=== PATIENT | male | born 1975 | race Caucasian/White ===

== ENCOUNTER 2020-05-07 11:52 | Outpatient (REF) | payer OTHER, SELFPAY | END 2020-05-07 11:53 | disposition home or self-care (01) | LOC: HO.LAB 11:52 | PROVIDERS: Visit Provider Internal Medicine | DX: Z20.822 Contact with and (suspected) exposure to COVID-19 (principal) | CPT/HCPCS: 36415; C9803; U0003; U0005 ==

== ENCOUNTER 2024-02-09 15:46 | Emergency (ER) | payer OTHER, SELFPAY ==
--- NOTE | ~2024-02-09 | XR_ITS ---
EXAMINATION: XR HAND/WRIST, LEFT CLINICAL INFORMATION: left wrist pain COMPARISON: None available. TECHNIQUE: Four views of the left hand and wrist. FINDINGS: The bones and soft tissues are normal. No fracture. Alignment is anatomic. Joint spaces are maintained. No erosions or soft tissue calcifications. XR/XR hand wrist LT IMPRESSION: Normal radiographs of the hand and wrist. Electronically signed by: Alyson Jefferson MD 02/09/2024 06:04 PM [facility] PALMA
[2024-02-09 15:57] VITALS: BP 129/74; PULSE 69; RESP 18; TEMP 36.6; O2SAT 97; BMI 36.6
--- NOTE | 2024-02-09 15:57 | ED_ITS ---
HPI - General Adult General Chief complaint: Extremity Problem Stated complaint: Pain L hand/arm Time Seen by Provider: 02/09/24 17:50 Source: patient Mode of arrival: ambulatory Limitations: no limitations History of Present Illness ED Provider: Ayo Dubois PA-C HPI narrative: 49 yo male presents to the ER for evaluation of left wrist and hand pain after shoveling snow yesterday; pain is acute on chronic but has worsened since shoveling. Described as 8/10 sharp pain in the dorsal aspect of the hand to the proximal dorsal aspect of the forearm. Movement worsens pain and he notes decre ased ROM and strength. Pain increased with extension of wrist. Denies numbness/tingling of extremities. This is PT's non-dominant hand MD complaint: left wrist pain Onset (ago): day(s) (1) Location: upper extremity (left hand and wrist ) Radiation: proximal Severity scale (1-10): 8 Quality: sharp Pain Consistency: constant Relieving factors: none Exacerbating factors: movement Related Data Previous Rx's ?Medication ?Instructions ?Recorded naproxen 500 mg tablet 500 mg PO BID PRN pain #20 tabs 02/09/24 Allergies Allergy/AdvReac Type Severity Reaction Status Date / Time pork derived (porcine) Allergy Itching Verified 02/09/24 15:59 Review of Systems Review of Systems: Yes all other systems are reviewed and are negative [facility] Social History Social History Advance Directives: No Advance Directives Information Provided: No Physical Exam ED Vital Signs: Vital Signs - 24 hr 02/09/24 15:57 Temperature 97.8 F Pulse Rate 69 Respiratory Rate 18 Blood Pressure 129/74 Pulse Oximetry 97 Oxygen Delivery Method Room Air BMI result Body Mass Index 36.6 Appearance: Alert. Oriented X3. No acute distress. Head: normocephalic, atraumatic. Neck: Normal inspection. Neck supple. CVS: Normal heart rate and rhythm. Pulses normal. Respiratory: No respiratory distress. Skin: Skin warm and dry. Normal skin color. Normal skin turgor. No rashes. Extremities: No upper or lower extremity edema. No joint swelling. +CMS in all extremities. No appreciable deformities, contusions, ecchymosis. 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 pain with active extension and flexion of the left wrist Neuro/psych: Oriented X 3. CN II-XII intact. Normal speech and cognition. Course Course Course Narrative: This is an RME done by ELLEN Aguilar: Additional HPI, ROS, PE not included below will be deferred to primary provider. 49-year-old male presents with atraumatic left wrist pain noticed after shoveling doing yd work. Reports pain prevented him from sleeping. Denies numbness, tingling, fevers, chills. Medical Decision Making Medical Decision Making MDM Narrative: 49 yo male presents to the ER for evaluation of left wrist and hand pain after shoveling snow yesterday; pain is acute on chronic but has worsened since shoveling. Described as 8/10 sharp pain in the dorsal aspect of the hand to the proximal dorsal aspect of the forearm. Movement worsens pain and he notes decreased ROM and strength. Pain increased with extension of wrist. Denies numbness/tingling of extremities. This is PT's non-dominant hand. DDX - tendonitis of left wrist - wrist sprain - carpal tunnel syndrome - fracture of left wrist/hand/ forearm - dislocation of left hand/wrist/forearm Plan: - X-ray of left hand/wrist without acute abnormality - will place in velcro wrist splint, start nsaids, activity modification and refer to ortho given sxs for 1 year stable for d/c home Differential Diagnosis Differential Diagnoses: The differential diagnosis associated with the presentation includes as above Independent Interpretation I performed an independent interpretation of an: Plain X-Ray Interpretation: no acute fx, no soft tissue swelling Radiology Impression Discussion of test interpretation with radiology: I have reviewed the radiologist's reading. Prescription Management I considered prescription management with: Pain Medication Critical Care Time Critical Care Time Critical Care Time: No Discharge Plan Discharge Clinical Impression: Strain of left wrist Qualifiers: Encounter type: initial encounter Qualified Code(s): S66.912A - Strain of unspecified muscle, fascia and tendon at wrist and hand level, left hand, initial encounter Patient Disposition: Home, Self-Care Instructions: Wrist Injury (ED) Additional Instructions: Your x-ray today was normal. Wear the provided velcro wrist splint as needed. Use ice several times per day for the next 48 hours. Take the prescribed anti-inflammatory pain medication as needed Follow up with your doctor as needed. Given your symptoms have been getting worse for an extended about of time, recommend following up with Orthopedics for further evaluation and treatment. call for an appointment Prescriptions: New naproxen 500 mg tablet 500 mg PO BID PRN (Reason: pain) Qty: 20 0RF Referrals: [facility] [Provider Group] Print Language: Turkmen
[2024-02-09 18:37] VITALS: BP 129/74; PULSE 69; RESP 18; TEMP 36.6; O2SAT 97
== END 2024-02-09 18:37 | disposition home or self-care (01) ==
PROVIDERS: Emergency Provider Emergency Medicine
DX: S66.912A Strain of unspecified muscle, fascia and tendon at wrist and hand level, left hand, initial encounter (principal); X50.0XXA Overexertion from strenuous movement or load, initial encounter; Y93.H1 Activity, digging, shoveling and raking; Y92.017 Garden or yard in single-family (private) house as the place of occurrence of the external cause; Y99.9 Unspecified external cause status
CPT/HCPCS: 73110; 73130; 99282; 99283